=== PATIENT | male | born 1995 | race Caucasian/White ===

== ENCOUNTER → 2017-09-15 | Outpatient (CLI) | payer OTHER ==
--- NOTE | 2017-09-16 08:37 | MR ---
EXAMINATION TYPE: MR brain wo/w con DATE OF EXAM: 09/15/2017 COMPARISON: Prior brain MRI 07/10/2010 HISTORY: Poor Memory. Gadavist 7.5 TECHNIQUE: Multiplanar, multisequence images of the brain and brainstem is performed without and with IV contras t, utilizing 7.5 mL intravenous Gadavist . FINDINGS: Diffusion weighted images demonstrate no evidence of a recent infarct or other diffusion ab normality. There is no extra-axial fluid collection or significant interval change in white matter s ignal abnormality, brain signal is remarkable for punctate hyperintensities in the subcortical fronta l lobes, single lesions bilaterally measuring only 1 mm in size of questionable clinical significance . The ventricular system and cisternal spaces are normal in size and appearance. The brain volume i s age appropriate. Midline structures demonstrate normal morphology. The craniocervical junction appears within normal limits. Post contrast images demonstrate no abnormal enhancement. The dural venous sinuses appear pa tent. The visualized sinuses are remarkable for extensive bilateral maxillary sinus disease, ethmoid sinus disease and the globes are intact. IMPRESSION: Sinus disease, stable brain MRI
== END | disposition home or self-care (01) ==
LOC: RADMRIMAIN 18:34
PROVIDERS: ATTEND Family Medicine
DX: J32.2 Chronic ethmoidal sinusitis (principal); J32.0 Chronic maxillary sinusitis; R41.3 Other amnesia; F95.2 Tourette's disorder
CPT/HCPCS: 70553; A9581

== ENCOUNTER 2018-01-10 12:54 | Emergency (ER) | payer OTHER ==
--- NOTE | 2018-01-10 13:34 | ED ---
General Adult HPI - General Chief complaint: Abdominal Pain Stated complaint: Flank Pain Time Seen by Provider: 01/10/18 13:10 Source: patient, family, RN notes reviewed, old records reviewed Mode of arrival: ambulatory Limitations: no limitations - History of Present Illness Initial comments: Complaint history of present illness a 22-year-old male here with his significant other. The patient reports she's had on-again off-again pain to the right upper quadrant for more than a year. More recently has been increasing. He states that it seems to get worse after eating greasy fatty foods. No change in bowel or urine habits. Denies nausea vomiting denies having any pain at this time. - Related Data Home Medications Medication Instructions Recorded Confirmed Albuterol Inhaler [Ventolin Hfa 2 puff INHALATION RT-Q6H PRN 03/25/16 01/10/18 Inhaler] Previous Rx's Medication Instructions Recorded Ondansetron Odt [Zofran ODT] 4 mg PO Q8HR PRN #5 tab 01/10/18 Ranitidine HCl [Zantac] 150 mg PO BID #30 tab 01/10/18 Allergies Allergy/AdvReac Type Severity Reaction Status Date / Time bee venom protein (honey bee) Allergy Swelling Verified 01/10/18 16:58 Review of Systems ROS Statement: Those systems with pertinent positive or pertinent negative responses have been documented in the HPI. Review of systems. No complaint of any headache or visual acuity changes no sore throat no chest pain or shortness of breath he has discomfort to the right upper quadrant occasionally goes to the epigastric region. Pain last several hours. Often times after eating a big meal. Denies any change in bowel or urinary habits. No nausea no vomiting. No direct injury. All systems were reviewed past medical problems asthma. Surgeries none. Family history an aunt had gallbladder issues. The patient has ALLERGIES to bees. Denies smoking denies drinking other than occasional socially. 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 Occasionally it hurts at work while moving around ROS Other: All systems not noted in ROS Statement are negative. Past Medical History Past Medical History: Asthma History of Any Multi-Drug Resistant Organisms: None Reported Past Surgical History: No Surgical Hx Reported Past Psychological History: No Psychological Hx Reported Smoking Status: Former smoker Past Alcohol Use History: Rare Past Drug Use History: Marijuana General Exam - General Exam Comments Initial Comments: General: The patient is awake and alert, in no distress, and does not appear acutely ill. Here because of recurrent and increasing discomfort to the right upper quadrant. Vital signs his temperature 98.2 pulse 73 respiratory rate 18 pulse ox 99% room air blood pressure 126/71 Eye: Pupils are equal, round and reactive to light, extra-ocular movements are intact ; there is normal conjunctiva bilaterally. No signs of icterus. Ears, nose, mouth and throat: There are moist mucous membranes and no oral lesions. Neck: The neck is supple, there is no tenderness no anterior cervical lymphadenopathy. Cardiovascular: There is a regular rate and rhythm. No murmur, rub or gallop is appreciated. Respiratory: Lungs are clear to auscultation, respirations are non-labored, breath sounds are equal. No wheezes, stridor, rales, or rhonchi. Gastrointestinal: Soft, non-distended, non-tender abdomen without masses or organomegaly noted. There is no rebound or guarding present. No CVA tenderness. Bowel sounds are unremarkable. Negative Arrington sign at this time. By does complain of discomfort to the right upper quadrant after heavy meals. Back: No flank pain. Musculoskeletal: Normal ROM, no tenderness, T Neurological: No complaints of or any neuro deficits noted. No problem with dizziness. Skin: Skin is warm and dry and no rashes or lesions are noted. Psychiatric: Cooperative, appropriate mood & affect, Limitations: no limitations Course Vital Signs 01/10/18 01/10/18 01/10/18 13:00 15:29 17:16 Temperature 98.2 F 97.3 F L 97.2 F L Pulse Rate 73 57 L 52 L Respiratory 18 16 14 Rate Blood Pressure 126/71 111/61 132/67 O2 Sat by Pulse 99 98 100 Oximetry Medical Decision Making - Medical Decision Making Medical decision making; the 22-year-old male here with a complaint of right upper quadrant discomfort on again off again for better part of 1 year and increasing more recently. He does note upon questioning that does seem to get worse after eating greasy fatty meal. Also of interest the patient has lost a fair amount of weight over the last 2 years. As much as 60 pounds. Nausea no vomiting no change in color of stool or urine. Labs show white count 9.6 hemoglobin 16 hematocrit of 47 with a potassium 3.9. BUN 16 creatinine 0.8 GFR greater than 90. Glucose 72. Patient's urine positive for ketones. The patient is being hydrated. No signs of blood. X-ray of the abdomen was done 2 views. And reviewed by radiologist his impression is unremarkable abdomen. As read by Dr. Rojo The patient has not had anything to eat today we will do an ultrasound without gallbladder problems. Ultrasound of the abdomen specifically the right upper quadrant was done and reviewed by radiologist his impression is pancreas visualized portions with a normal limits. Liver within normal limits. Gallbladder no stone seen. Evidence for sonographic Arrington sign no., Bile duct within normal limits. The right kidney no hydronephrosis or masses seen, limited visualization due to bowel gas pattern impression visualized portions right upper quadrant are unremarkable. We discussed discomfort from the epigastric region such as gastritis or early ulcer disease or biliary colic. The patient has lost a large amount of weight over the past year or 2 a does complain of the symptoms are suggestive of biliary colic. The patient will be advised to follow-up with the on-call physician for further evaluation including a possible HIDA scan. In the meanwhile patient be placed on Zantac, Zofran for nausea, advised to stay with greasy fatty foods. Or return emergency room as needed. - Lab Data Result diagrams: 01/10/18 15:06 01/10/18 15:06 Lab Results 01/10/18 01/10/18 01/10/18 Range/Units 15:06 15:06 15:06 WBC 9.6 (4.0-11.0) k/uL RBC 5.19 (4.30-5.90) m/uL Hgb 16.0 (13.0-17.5) gm/dL Hct 47.1 (39.0-53.0) % MCV 90.7 (80.0-100.0) fL MCH 30.8 (25.0-35.0) pg MCHC 33.9 (31.0-37.0) g/dL RDW 13.2 (11.5-15.5) % Plt Count 228 (150-450) k/uL Neutrophils % 69 % Lymphocytes % 22 % Monocytes % 7 % Eosinophils % 1 % Basophils % 0 % Neutrophils # 6.6 (1.3-7.7) k/uL Lymphocytes # 2.1 (1.0-4.8) k/uL Monocytes # 0.6 (0-1.0) k/uL Eosinophils # 0.1 (0-0.7) k/uL Basophils # 0.0 (0-0.2) k/uL Sodium 143 (137-145) mmol/L Potassium 3.9 (3.5-5.1) mmol/L Chloride 104 (98-107) mmol/L Carbon Dioxide 24 (22-30) mmol/L Anion Gap 15 mmol/L BUN 16 (9-20) mg/dL Creatinine 0.80 (0.66-1.25) mg/dL Est GFR (CKD-EPI)AfAm >90 (>60 ml/min/1.73 sqM) Est GFR (CKD-EPI)NonAf >90 (>60 ml/min/1.73 sqM) Glucose 72 L (74-99) mg/dL Calcium 9.7 (8.4-10.2) mg/dL Total Bilirubin 0.9 (0.2-1.3) mg/dL AST 23 (17-59) U/L ALT 30 (21-72) U/L Alkaline Phosphatase 63 (38-126) U/L Total Protein 7.0 (6.3-8.2) g/dL Albumin 4.4 (3.5-5.0) g/dL Amylase 59 (30-110) U/L Lipase 48 (23-300) U/L Urine Color Yellow Urine Appearance Clear (Clear) Urine pH 7.0 (5.0-8.0) Ur Specific [place] 1.020 (1.001-1.035) Urine Protein Negative (Negative) Urine Glucose (UA) Negative (Negative) Urine Ketones Trace H (Negative) Urine Blood Negative (Negative) Urine Nitrite Negative (Negative) Urine Bilirubin Negative (Negative) Urine Urobilinogen <2.0 (<2.0) mg/dL Ur Leukocyte Esterase Negative (Negative) Disposition Clinical Impression: Biliary colic symptom Disposition: HOME SELF-CARE Condition: Fair Additional Instructions: Take Zofran for nausea, Zantac for upset stomach. Use Mylanta as needed. Stay away from greasy fatty foods. Follow-up with on-call physician Dr. Hopkins . He may need a HIDA scan for further evaluation. Tylenol for pain Prescriptions: Ondansetron Odt [Zofran ODT] 4 mg PO Q8HR PRN #5 tab PRN Reason: Nausea Ranitidine HCl [Zantac] 150 mg PO BID #30 tab Is patient prescribed a controlled substance at d/c from ED?: No Referrals: None,Stated [Primary Care Provider] - 1-2 days Steph Hopkins MD [REFERRING] - 1-2 days Time of Disposition: 17:31
--- NOTE | 2018-01-10 14:26 | XR ---
EXAMINATION TYPE: XR abdomen 2V DATE OF EXAM: 01/10/2018 COMPARISON: 03/25/2016 INDICATION: Abdomen pain TECHNIQUE: Single view abdomen upright view. Exam is supplemented with a supine view FINDINGS: There is a normal bowel gas pattern. Psoas margins are normal. No organomegaly is present. No abnormal calcifications are evident. IMPRESSION: 1. Unremarkable Abdomen
[2018-01-10 15:26] LABS: Appearance,Urine Clear (Clear); Bilirubin,Urine Negative (Negative); Blood,Urine Negative (Negative); Color,Urine Yellow; Glucose,Urine (UA) Negative (Negative); Ketones,Urine Trace (Negative); Leukocyte Esterase,Urine Negative (Negative); Nitrite,Urine Negative (Negative); Protein,Urine Negative (Negative); Urobilinogen,Urine <2.0 mg/dL (<2.0)
[2018-01-10 15:30] LABS: Basophils % (A) 0 %; Eosinophils # (A) 0.1 k/uL (0-0.7); Eosinophils % (A) 1 %; HCT 47.1 % (39.0-53.0); Lymphocytes # (A) 2.1 k/uL (1.0-4.8); Lymphocytes % (A) 22 %; MCH 30.8 pg (25.0-35.0); MCHC 33.9 g/dL (31.0-37.0); MCV 90.7 fL (80.0-100.0); Mean Platelet Volume 6.5; Monocytes # (A) 0.6 k/uL (0-1.0); Monocytes % (A) 7 %; Neutrophils # (A) 6.6 k/uL (1.3-7.7); Neutrophils % (A) 69 %; Platelet Count 228 k/uL (150-450); RBC 5.19 m/uL (4.30-5.90); RDW 13.2 % (11.5-15.5); WBC 9.6 k/uL (4.0-11.0)
[2018-01-10 15:36] LABS: ALT 30 U/L (21-72); AST 23 U/L (17-59); Albumin 4.4 g/dL (3.5-5.0); Alkaline Phosphatase 63 U/L (38-126); Amylase 59 U/L (30-110); Anion Gap 15 mmol/L; Blood Urea Nitrogen 16 mg/dL (9-20); Calcium 9.7 mg/dL (8.4-10.2); Carbon Dioxide 24 mmol/L (22-30); Chloride 104 mmol/L (98-107); Glucose 72 mg/dL (74-99); Lipase 48 U/L (23-300); Potassium 3.9 mmol/L (3.5-5.1); Sodium 143 mmol/L (137-145); Total Bilirubin 0.9 mg/dL (0.2-1.3)
--- NOTE | 2018-01-10 17:09 | US ---
EXAMINATION TYPE: US abdomen limited DATE OF EXAM: 01/10/2018 COMPARISON: NONE CLINICAL HISTORY: Recurrent right upper quadrant pain after eating.. EXAM MEASUREMENTS: Liver Length: 13.7 cm Gallbladder Wall: 0.2 cm CBD: 0.3 cm Right Kidney: 9.3 x 5.1 x 4.6 cm Pancreas: visualized portions wnl Liver: wnl Gallbladder: No stones seen Evidence for sonographic Arrington's sign: No CBD: wnl Right Kidney: No hydronephrosis or masses seen, limited visualization due to bowel gas. IMPRESSION: 1. Visualized portions right upper quadrant are unremarkable.
[2018-01-10 17:22] VITALS: TEMP 97.2
[2018-01-10 18:09] VITALS: BP 136/75; PULSE 61; RESP 18
== END 2018-01-10 17:45 | disposition home or self-care (01) ==
LOC: EC 12:54
DX: R10.11 Right upper quadrant pain (principal); J45.909 Unspecified asthma, uncomplicated; Z87.891 Personal history of nicotine dependence; Z91.030 Bee allergy status
CPT/HCPCS: 36415; 74019; 76705; 80053; 81003; 82150; 83690; 85025; 99285

== ENCOUNTER 2018-07-02 19:05 | Emergency (ER) | payer OTHER ==
[2018-07-02 19:44] VITALS: BP 119/77; PULSE 63; RESP 18; TEMP 99
[2018-07-02] MEDS ORDERED: LIDOCAINE 1% INJ 10MG/ML (20 ML MDV) SQ STA (20:53)
[2018-07-02] MEDS ORDERED: DIPH,PERTUS(ACELL)TETVAC-LF 0.5 ML VIAL IM ONE (20:57)
--- NOTE | 2018-07-02 20:58 | ED ---
General Adult HPI - General Chief complaint: Wound/Laceration Stated complaint: finger lac Time Seen by Provider: 07/02/18 20:41 Source: patient, RN notes reviewed Mode of arrival: ambulatory Limitations: no limitations - History of Present Illness Initial comments: Patient's 22-year-old male presented to the emergency room today with a chief complaint of a laceration to the right index finger. He was met that he was using a cutting wheel grinding when it caught on something skipped his right index finger causing laceration. He did go to [facility] and was sent here in the emergency room for further evaluation. Patient states for able to move the finger. Bleeding is controlled. He states unsure of tetanus status. Patient denies any complaints or symptoms at this time. Patient denies any recent fever , chills, shortness of breath, chest pain, back pain, abdominal pain, nausea or vomiting, numbness or tingling, headaches or visual changes, or any other complaints. - Related Data Home Medications Medication Instructions Recorded Confirmed Albuterol Inhaler [Ventolin Hfa 2 puff INHALATION RT-Q6H PRN 03/25/16 01/10/18 Inhaler] Previous Rx's Medication Instructions Recorded Ondansetron Odt [Zofran ODT] 4 mg PO Q8HR PRN #5 tab 01/10/18 Ranitidine HCl [Zantac] 150 mg PO BID #30 tab 01/10/18 Cephalexin [Keflex] 500 mg PO Q12HR 10 Days cap 07/02/18 Allergies Allergy/AdvReac Type Severity Reaction Status Date / Time bee venom protein (honey bee) Allergy Swelling Verified 01/10/18 16:58 red dye Allergy Swelling Verified 07/02/18 19:45 Review of Systems ROS Statement: Those systems with pertinent positive or pertinent negative responses have been documented in the HPI. ROS Other: All systems not noted in ROS Statement are negative. Past Medical History Past Medical History: Asthma History of Any Multi-Drug Resistant Organisms: None Reported Past Surgical History: No Surgical Hx Reported Past Psychological History: No Psychological Hx Reported Smoking Status: Former smoker Past Alcohol Use History: Rare Past Drug Use History: Marijuana General Exam - General Exam Comments Initial Comments: General: The patient is awake and alert, in no distress, and does not appear acutely ill. Neck: The neck is supple, there is no tenderness or JVD. Musculoskeletal: Full range of motion. Sensations intact. Radial pulses 2+. Strength 5/5 with both flexion and extension at the right index finger. Neurological: A&O x 3. CN II-XII intact, There are no obvious motor or sensory deficits. Coordination appears grossly intact. Speech is normal. Skin: 1 cm linear laceration running vertically over the PIP joint of the right index finger. No active bleeding. Psychiatric: Normal mood and affect. Limitations: no limitations Course Vital Signs 07/02/18 19:42 Temperature 99 F Pulse Rate 63 Respiratory 18 Rate Blood Pressure 119/77 O2 Sat by Pulse 98 Oximetry Procedures - Procedures Initial comment: 1 cm linear laceration to the right index finger. No active bleeding. The skin was anesthetized with 1% lidocaine. The laceration was then cleansed with Betadine and irrigated with normal saline. The wound was inspected, and there was no evidence of injury to deep structures. No foreign body was noted in the wound. A total of 3 skin sutures were placed utilizing 4-0 nylon. Medical Decision Making - Medical Decision Making Tetanus Was updated x-ray reviewed negative for any signs or body. Disposition Clinical Impression: Laceration Disposition: HOME SELF-CARE Condition: Good Instructions: Laceration (ED) Additional Instructions: Please return to the emergency room in 8-10 days to have sutures removed. Please watch for any signs of infection which may include increased pain, swelling, redness, fever or chills. Please return to emergency room for any signs of infection do occur. Please use clean soap and water over the area to prevent scabbing over your stitches. Please leave wound covered for the first 24-48 hours and then leave wound open to air. Please return to the emergency room for any other concerns. Prescriptions: Cephalexin [Keflex] 500 mg PO Q12HR 10 Days cap Is patient prescribed a controlled substance at d/c from ED?: No Referrals: None,Stated [REFERRING] - 1-2 days Time of Disposition: 21:46
--- NOTE | 2018-07-02 21:11 | XR ---
EXAMINATION TYPE: XR finger RT DATE OF EXAM: 07/02/2018 COMPARISON: NONE HISTORY: Laceration TECHNIQUE: 3 views FINDINGS: I see no fracture nor dislocation. Joint spaces are normal. There is no sign of a foreign b [place]. IMPRESSION: Negative exam. No foreign body seen.
== END 2018-07-02 22:13 | disposition home or self-care (01) ==
LOC: EC 19:05
DX: S61.210A Laceration without foreign body of right index finger without damage to nail, initial encounter (principal); J45.909 Unspecified asthma, uncomplicated; Z87.891 Personal history of nicotine dependence; Z91.018 Allergy to other foods; Z91.048 Other nonmedicinal substance allergy status; Z23 Encounter for immunization; W45.8XXA Other foreign body or object entering through skin, initial encounter; Y93.89 Activity, other specified
CPT/HCPCS: 73140; 90715; 99283; 90471; 12001; J2001

== ENCOUNTER 2018-07-31 20:47 | Emergency (ER) | payer OTHER ==
--- NOTE | 2018-07-31 21:44 | XR ---
EXAMINATION TYPE: XR KUB DATE OF EXAM: 07/31/2018 COMPARISON: 01/10/2018 HISTORY: Abdominal pain TECHNIQUE: 2 views FINDINGS: 2 upright views were obtained. Bowel gas pattern is normal. There is no sign of intestinal obstruction or pneumoperitoneum. Fecal pattern is normal. There is no sign of a mass. Lung bases are clear. There are no pathologic calcifications over the kidneys. IMPRESSION: Nonacute abdomen. No change.
[2018-07-31] MEDS ORDERED: ONDANSETRON 4 MG/2 ML VIAL IVP STA (21:57)
[2018-07-31] MEDS ORDERED: KETOROLAC 30 MG/ML 1 ML VIAL IVP STA (21:57)
[2018-07-31] MEDS ORDERED: SODIUM CHLORIDE 0.9% 1,000 ML IV ONE (21:57)
[2018-07-31 22:01] LABS: Basophils % (A) 0 %; Eosinophils # (A) 0.2 k/uL (0-0.7); Eosinophils % (A) 2 %; HCT 46.5 % (39.0-53.0); HGB 15.4 gm/dL (13.0-17.5); Lymphocytes # (A) 3.1 k/uL (1.0-4.8); Lymphocytes % (A) 34 %; MCH 30.1 pg (25.0-35.0); MCHC 33.2 g/dL (31.0-37.0); MCV 90.5 fL (80.0-100.0); Mean Platelet Volume 6.9; Monocytes # (A) 0.7 k/uL (0-1.0); Monocytes % (A) 7 %; Neutrophils % (A) 55 %; Platelet Count 203 k/uL (150-450); RBC 5.14 m/uL (4.30-5.90); RDW 12.7 % (11.5-15.5); WBC 9.1 k/uL (4.0-11.0)
[2018-07-31 22:08] LABS: ALT 31 U/L (21-72); AST 22 U/L (17-59); Albumin 4.3 g/dL (3.5-5.0); Alkaline Phosphatase 60 U/L (38-126); Amylase 60 U/L (30-110); Anion Gap 10 mmol/L; Blood Urea Nitrogen 18 mg/dL (9-20); Calcium 9.3 mg/dL (8.4-10.2); Carbon Dioxide 27 mmol/L (22-30); Chloride 106 mmol/L (98-107); Glucose 85 mg/dL (74-99); Lipase 79 U/L (23-300); Sodium 143 mmol/L (137-145); Total Bilirubin 0.3 mg/dL (0.2-1.3)
[2018-07-31 22:20] LABS: Appearance,Urine Clear (Clear); Bilirubin,Urine Negative (Negative); Blood,Urine Negative (Negative); Color,Urine Yellow; Glucose,Urine (UA) Negative (Negative); Ketones,Urine Negative (Negative); Leukocyte Esterase,Urine Negative (Negative); Nitrite,Urine Negative (Negative); Protein,Urine Negative (Negative); Specific Gravity,Urine 1.017 (1.001-1.035); Urobilinogen,Urine <2.0 mg/dL (<2.0)
--- NOTE | 2018-07-31 22:53 | ED ---
Abdominal Pain HPI - General Chief Complaint: Abdominal Pain Stated Complaint: Abd pain Time Seen by Provider: 07/31/18 21:17 Source: patient, RN notes reviewed, old records reviewed Mode of arrival: ambulatory Limitations: no limitations - History of Present Illness Initial Comments: This is a 22 year old male with CC of Right sided abdominal pain. Patient reports he had a rash ove the right side of his abodmen for one day. Patient reports that he has had intermittent right abdominal pain with eating for months. Patient was evaluated and told that he has had a "bad gallbladder" in ED a few months ago. Has not follow up with surgeon or PCP. Denies fevers, chills, changes in stool or urination. Patient has no vomiting. Patient also reports somewhat pruritic rash over arms. - Related Data Home Medications Medication Instructions Recorded Confirmed Albuterol Inhaler [Ventolin Hfa 2 puff INHALATION RT-Q6H PRN 03/25/16 01/10/18 Inhaler] Previous Rx's Medication Instructions Recorded Ondansetron Odt [Zofran ODT] 4 mg PO Q8HR PRN #5 tab 01/10/18 Ranitidine HCl [Zantac] 150 mg PO BID #30 tab 01/10/18 Cephalexin [Keflex] 500 mg PO Q12HR 10 Days cap 07/02/18 Clotrimazole Cream [Lotrimin Cream] 1 applic TOPICAL BID #60 gm 07/31/18 Allergies Allergy/AdvReac Type Severity Reaction Status Date / Time bee venom protein (honey bee) Allergy Swelling Verified 07/31/18 20:55 red dye Allergy Swelling Verified 07/31/18 20:55 Review of Systems ROS Statement: Those systems with pertinent positive or pertinent negative responses have been documented in the HPI. ROS Other: All systems not noted in ROS Statement are negative. Past Medical History Past Medical History: Asthma History of Any Multi-Drug Resistant Organisms: None Reported Past Surgical History: No Surgical Hx Reported Past Psychological History: No Psychological Hx Reported Smoking Status: Former smoker Past Alcohol Use History: Rare Past Drug Use History: Marijuana General Exam - General Exam Comments Initial Comments: Well appearing 22 year old male, no distress. Limitations: no limitations General appearance: alert, in no apparent distress Head exam: Present: atraumatic, normocephalic, normal inspection Eye exam: Present: normal appearance, PERRL, EOMI. Absent: scleral icterus, conjunctival injection, periorbital swelling ENT exam: Present: normal exam, mucous membranes moist Neck exam: Present: normal inspection. Absent: tenderness, meningismus, lymphadenopathy Respiratory exam: Present: normal lung sounds bilaterally. Absent: respiratory distress, wheezes, rales, rhonchi, stridor Cardiovascular Exam: Present: regular rate, normal rhythm, normal heart sounds. Absent: systolic murmur, diastolic murmur, rubs, gallop, clicks GI/Abdominal exam: Present: soft, normal bowel sounds. Absent: distended, tenderness, guarding, rebound, rigid Extremities exam: Present: normal inspection, full ROM, normal capillary refill , other (evidence of tinea corporis over bilateral shoulders and arms. Small circular scale like patches. ). Absent: tenderness, pedal edema, joint swelling , calf tenderness Back exam: Present: normal inspection Neurological exam: Present: alert, oriented X3, CN II-XII intact Skin exam: Present: warm, dry, intact, normal color. Absent: rash Course Vital Signs 07/31/18 07/31/18 07/31/18 20:49 21:14 21:30 Temperature 98.6 F Pulse Rate 78 80 Respiratory 18 18 Rate Blood Pressure 117/74 115/67 O2 Sat by Pulse 97 99 97 Oximetry 07/31/18 07/31/18 22:00 23:37 Temperature 97.7 F Pulse Rate 75 58 L Respiratory 18 17 Rate Blood Pressure 108/68 106/69 O2 Sat by Pulse 98 98 Oximetry Medical Decision Making - Medical Decision Making 22 year old male with cC of right abdominal pain, and rash over right side. Patient on exam has no significant rash over right abdomen. He has no abdominal tenderness. Labs were obtained and all were within normal limitis. Normal liver enzymes noted. Patient at this time was also examined by Dr. Olivares. Agree to do no further imaging at this time with normal vitals, labs, and non tender exam. Will treat the patient for tinea corporis. Discussed biliary colic and surgery follow up and may need HIDA scan. - Lab Data Result diagrams: 07/31/18 21:25 07/31/18 21:25 Lab Results 07/31/18 07/31/18 07/31/18 Range/Units 21:25 21:25 22:10 WBC 9.1 (4.0-11.0) k/uL RBC 5.14 (4.30-5.90) m/uL Hgb 15.4 (13.0-17.5) gm/dL Hct 46.5 (39.0-53.0) % MCV 90.5 (80.0-100.0) fL MCH 30.1 (25.0-35.0) pg MCHC 33.2 (31.0-37.0) g/dL RDW 12.7 (11.5-15.5) % Plt Count 203 (150-450) k/uL Neutrophils % 55 % Lymphocytes % 34 % Monocytes % 7 % Eosinophils % 2 % Basophils % 0 % Neutrophils # 5.0 (1.3-7.7) k/uL Lymphocytes # 3.1 (1.0-4.8) k/uL Monocytes # 0.7 (0-1.0) k/uL Eosinophils # 0.2 (0-0.7) k/uL Basophils # 0.0 (0-0.2) k/uL Sodium 143 (137-145) mmol/L Potassium 4.0 (3.5-5.1) mmol/L Chloride 106 (98-107) mmol/L Carbon Dioxide 27 (22-30) mmol/L Anion Gap 10 mmol/L BUN 18 (9-20) mg/dL Creatinine 0.86 (0.66-1.25) mg/dL Est GFR (CKD-EPI)AfAm >90 (>60 ml/min/1.73 sqM) Est GFR (CKD-EPI)NonAf >90 (>60 ml/min/1.73 sqM) Glucose 85 (74-99) mg/dL Calcium 9.3 (8.4-10.2) mg/dL Total Bilirubin 0.3 (0.2-1.3) mg/dL AST 22 (17-59) U/L ALT 31 (21-72) U/L Alkaline Phosphatase 60 (38-126) U/L Total Protein 7.0 (6.3-8.2) g/dL Albumin 4.3 (3.5-5.0) g/dL Amylase 60 (30-110) U/L Lipase 79 (23-300) U/L Urine Color Yellow Urine Appearance Clear (Clear) Urine pH 6.0 (5.0-8.0) Ur Specific [place] 1.017 (1.001-1.035) Urine Protein Negative (Negative) Urine Glucose (UA) Negative (Negative) Urine Ketones Negative (Negative) Urine Blood Negative (Negative) Urine Nitrite Negative (Negative) Urine Bilirubin Negative (Negative) Urine Urobilinogen <2.0 (<2.0) mg/dL Ur Leukocyte Esterase Negative (Negative) Disposition Clinical Impression: Tinea corporis, Right upper quadrant abdominal pain Disposition: HOME SELF-CARE Condition: Good Instructions: Abdominal Pain (ED) Additional Instructions: Follow-up with primary care provider and surgeon. Return to emergency department if any alarming signs or symptoms occur. Prescriptions: Clotrimazole Cream [Lotrimin Cream] 1 applic TOPICAL BID #60 gm Is patient prescribed a controlled substance at d/c from ED?: No Referrals: None,Stated [Primary Care Provider] - 1-2 days Melvi Caldera MD [STAFF PHYSICIAN] - 1-2 days Time of Disposition: 23:26
[2018-07-31 23:38] VITALS: BP 106/69; PULSE 58; RESP 17; TEMP 97.7
== END 2018-07-31 23:41 | disposition home or self-care (01) ==
LOC: EC 20:47
DX: B35.4 Tinea corporis (principal); R10.11 Right upper quadrant pain; J45.909 Unspecified asthma, uncomplicated; Z87.891 Personal history of nicotine dependence; Z91.018 Allergy to other foods; Z91.048 Other nonmedicinal substance allergy status
CPT/HCPCS: 36415; 80053; 82150; 83690; 85025; 81003; 74018; 99284; 96374; 96375; 96361 ×2; J2405; J1885

== ENCOUNTER 2020-12-06 04:13 | Emergency (ER) | payer OTHER ==
[2020-12-06 04:19] VITALS: BP 126/75; PULSE 66; RESP 20; TEMP 98.1
[2020-12-06] MEDS ORDERED: TETRACAINE 0.5% OPHTH (PF) DROPS 4 ML BTL LEFT EYE STA (04:21)
[2020-12-06] MEDS ORDERED: FLUORESCEIN STRIPS 1 MG STRIP LEFT EYE ONE (04:22)
[2020-12-06] MEDS ORDERED: ERYTHROMYCIN 5 MG/GM OPHTH OINT 3.5 GM TUBE LEFT EYE STA (05:05)
--- NOTE | 2020-12-06 05:07 | ED ---
Eye Problem HPI - General Chief complaint: ENT Stated complaint: Eye pain Time Seen by Provider: 12/06/20 04:21 Source: patient Mode of arrival: ambulatory Limitations: no limitations - History of Present Illness Initial comments: Patient is 25-year-old man presenting with left eye irritation and redness. The patient states that he had noticed this tonight at home. 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 The patient states that something may have gotten in to his eye when he moved his glasses. He noticed tonight that he was having some irritation and redness. He states that he looked in the mirror and saw a brown spot on his left eye. He denies change in vision. chief complaint: eye redness -: hour(s) Onset Description: gradual Location: left eye Place: home Eye Symptoms: redness, pain, foreign body sensation Severity: moderate If Pain, Quality: burning Consistency: constant Associated Symptoms: none Treatments Prior to Arrival: none - Related Data Patient Tetanus UTD: Yes Home Medications Medication Instructions Recorded Confirmed Albuterol Inhaler (Mhu) [Ventolin 2 puff INHALATION RT-Q6H PRN 03/25/16 01/10/18 Hfa Inhaler] Previous Rx's Medication Instructions Recorded Ondansetron Odt [Zofran ODT] 4 mg PO Q8HR PRN #5 tab 01/10/18 Ranitidine HCl [Zantac] 150 mg PO BID #30 tab 01/10/18 Cephalexin [Keflex] 500 mg PO Q12HR 10 Days cap 07/02/18 Clotrimazole Cream [Lotrimin Cream] 1 applic TOPICAL BID #60 gm 07/31/18 Allergies Allergy/AdvReac Type Severity Reaction Status Date / Time bee venom protein (honey bee) Allergy Swelling Verified 12/06/20 04:19 red dye Allergy Swelling Verified 12/06/20 04:19 Review of Systems ROS Statement: Those systems with pertinent positive or pertinent negative responses have been documented in the HPI. ROS Other: All systems not noted in ROS Statement are negative. Constitutional: Denies: fever, chills Eyes: Reports: eye pain. Denies: vision change Skin: Denies: rash Neurological: Denies: headache Past Medical History Past Medical History: Asthma History of Any Multi-Drug Resistant Organisms: None Reported Past Surgical History: No Surgical Hx Reported Past Psychological History: No Psychological Hx Reported Smoking Status: Never smoker Past Alcohol Use History: Rare Past Drug Use History: Marijuana General Exam Limitations: no limitations General appearance: alert, in no apparent distress Head exam: Present: atraumatic, normocephalic Eye exam: Present: normal appearance, PERRL, EOMI, conjunctival injection. Absent: scleral icterus, nystagmus ENT exam: Present: normal oropharynx Course Vital Signs 12/06/20 04:14 Temperature 98.1 F Pulse Rate 66 Respiratory 20 Rate Blood Pressure 126/75 O2 Sat by Pulse 99 Oximetry Medical Decision Making - Medical Decision Making Patient is 25-year-old man with left eye irritation. I did perform slit lamp examination. There was a small amount of foreign body when I everted the lower lid. This was removed with cotton swab. Exam reveals no rust ring on the left cornea at approximately 9 o'clock position. Remainder of slit lamp exam reveals otherwise normal lids. There is small amount of conjunctival injection. The cornea is thin and clear other than the rust ring. Anterior chamber is clear with no cells or flare. Iris is normal. The upper lid was everted, irrigated, and swabbed. Repeated this for the lower lid. Following the slit lamp exam, and using the slit lamp for guidance, I used the [place] brush to remove the rust ring without complication. Patient tolerated her seizure while Disposition Clinical Impression: Foreign body in cornea, left eye, initial encounter, Corneal rust ring of left eye Disposition: HOME SELF-CARE Condition: Good Instructions (If sedation given, give patient instructions): Eye Foreign Body (ED) Is patient prescribed a controlled substance at d/c from ED?: No Referrals: None,Stated [Primary Care Provider] - 1-2 days Chin Quintero MD [REFERRING] - 1-2 days Wes Quintero MD [STAFF PHYSICIAN] - 1-2 days
== END 2020-12-06 05:22 | disposition home or self-care (01) ==
LOC: EC 04:13
DX: T15.02XA Foreign body in cornea, left eye, initial encounter (principal); J45.909 Unspecified asthma, uncomplicated; Z91.030 Bee allergy status; Z91.048 Other nonmedicinal substance allergy status
CPT/HCPCS: 65222; 99283

== ENCOUNTER 2022-07-19 03:58 | Emergency (ER) | payer BC, OTHER ==
[2022-07-19 04:16] VITALS: RESP 18
--- NOTE | 2022-07-19 04:28 | ED ---
ENT HPI - General Chief complaint: ENT Stated complaint: Left Ear Ache, Facial Numbness Time Seen by Provider: 07/19/22 04:14 Source: patient, RN notes reviewed, old records reviewed Mode of arrival: ambulatory Limitations: no limitations - History of Present Illness Initial comments: This is a 26-year-old male to the emergency department for evaluation. Patient woke up a few hours ago severe left ear pain. It pain that her satiety feels like his jaw is mildly swollen as well into his anterior face. No fevers. Symptoms just been going on for a few hours and woke him from sleep no recent QTC abuse, no recent swimming events MD complaint: ear pain -: hour(s) Location: L ear Severity: severe Severity scale (1-10): 10 Quality: burning, stabbing, aching Consistency: constant Improves with: none Worsens with: none Associated Symptoms: tinnitus, hearing loss, discharge from ear - Related Data Home Medications Medication Instructions Recorded Confirmed Albuterol Inhaler [Ventolin Hfa 2 puff INHALATION RT-Q6H PRN 03/25/16 01/10/18 Inhaler] Previous Rx's Medication Instructions Recorded Ondansetron Odt [Zofran ODT] 4 mg PO Q8HR PRN #5 tab 01/10/18 Ranitidine HCl [Zantac] 150 mg PO BID #30 tab 01/10/18 Cephalexin [Keflex] 500 mg PO Q12HR 10 Days cap 07/02/18 Clotrimazole Cream [Lotrimin Cream] 1 applic TOPICAL BID #60 gm 07/31/18 Amoxic-Pot Clav 875-125Mg 1 tab PO Q12HR #20 tablet 07/19/22 [Augmentin 875-125] Allergies Allergy/AdvReac Type Severity Reaction Status Date / Time bee venom protein (honey bee) Allergy Swelling Verified 07/19/22 04:16 red dye Allergy Swelling Verified 07/19/22 04:16 Review of Systems ROS Statement: Those systems with pertinent positive or pertinent negative responses have been documented in the HPI. ROS Other: All systems not noted in ROS Statement are negative. Past Medical History Past Medical History: Asthma History of Any Multi-Drug Resistant Organisms: None Reported Past Surgical History: No Surgical Hx Reported Past Psychological History: No Psychological Hx Reported Smoking Status: Current every day smoker Past Alcohol Use History: Rare Past Drug Use History: Marijuana General Exam Limitations: no limitations General appearance: alert, in no apparent distress Head exam: Present: atraumatic, normocephalic, normal inspection Eye exam: Present: normal appearance, PERRL, EOMI. Absent: scleral icterus, conjunctival injection, periorbital swelling ENT exam: Present: normal exam. Absent: TM's normal bilaterally (Left TM is erythematous and swollen) Neck exam: Present: normal inspection. Absent: tenderness, meningismus, lymphadenopathy Respiratory exam: Present: normal lung sounds bilaterally. Absent: respiratory distress, wheezes, rales, rhonchi, stridor Cardiovascular Exam: Present: regular rate, normal rhythm, normal heart sounds. Absent: systolic murmur, diastolic murmur, rubs, gallop, clicks GI/Abdominal exam: Present: soft, normal bowel sounds. Absent: distended, tenderness, guarding, rebound, rigid Extremities exam: Present: normal inspection, full ROM, normal capillary refill. Absent: tenderness, pedal edema, joint swelling, calf tenderness Back exam: Present: normal inspection Neurological exam: Present: alert, oriented X3, CN II-XII intact Psychiatric exam: Present: normal affect, normal mood Skin exam: Present: warm, dry, intact, normal color. Absent: rash Course Vital Signs 07/19/22 04:14 Temperature 98 F Pulse Rate 88 Respiratory 18 Rate Blood Pressure 132/87 O2 Sat by Pulse 98 Oximetry - Reevaluation(s) Reevaluation #1: 07/19/22 05:39 Attic record is reviewed Reevaluation #2: 07/19/22 05:39 Patient's pain is improved Reevaluation #3: 07/19/22 05:39 patient informed results and questions are answered Medical Decision Making - Medical Decision Making 26 male urgency department for evaluation severe left ear pain. Otitis externa drops and antibiotics and patient can be discharged home Disposition Clinical Impression: Left otitis media, Left otitis externa Disposition: HOME SELF-CARE Condition: Good Instructions (If sedation given, give patient instructions): Ear Infection (ED), Earache (ED) Prescriptions: Amoxic-Pot Clav 875-125Mg [Augmentin 875-125] 1 tab PO Q12HR #20 tablet Is patient prescribed a controlled substance at d/c from ED?: No Referrals: Amaya Puente DO [Primary Care Provider] - 1-2 days Time of Disposition: 05:20
[2022-07-19] MEDS ORDERED: AMOXIC-POT CLAV 875-125MG 1 EACH TAB PO STA (05:11)
[2022-07-19] MEDS ORDERED: CIPROFLOXACIN-DEXAMETH 0.3-0.1% DROPS 7.5 ML BTL LEFT EAR STA (05:11)
[2022-07-19] MEDS ORDERED: ACETAMINOPHEN TAB 500 MG TAB PO STA (05:12)
[2022-07-19] MEDS ORDERED: IBUPROFEN 800 MG TAB PO STA (05:12)
[2022-07-19 05:46] VITALS: BP 131/75; PULSE 85; TEMP 98.2
== END 2022-07-19 05:46 | disposition home or self-care (01) ==
LOC: EC 03:58
DX: H66.92 Otitis media, unspecified, left ear (principal); H60.92 Unspecified otitis externa, left ear; J45.909 Unspecified asthma, uncomplicated; F17.210 Nicotine dependence, cigarettes, uncomplicated; Z91.030 Bee allergy status; Z91.041 Radiographic dye allergy status
CPT/HCPCS: 99283

== ENCOUNTER → 2022-11-12 | Outpatient (CLI) | payer BC, OTHER ==
--- NOTE | 2022-11-12 16:05 | P.SLEEP ---
History of Present Illness DATE: 11/12/2022 CONSULTATION/NEW PATIENT EVALUATION HISTORY OF PRESENT ILLNESS/SLEEP-WAKE EVALUATION: 27 old gentleman had been ev aluated in the sleep center for significant excessive daytime sleepiness. Patient has history of sleepiness for many years. His conditions improved while he is using Adderall 20 mg a day. SLEEP SCHEDULE: Usually sleep schedule from 9 PM to 5 AM on weekdays and from midnight until 8 AM on weekend. FALLING ASLEEP: No problems with falling asleep. DURING SLEEP: Positive history of mild snoring. No sleep paralysis, or cataplexy. DURING THE DAY/WAKE STATE: []. History of hypnogogical hallucinations while dozing off. [place] sleepiness scale is 16, which is in very high range and indicates sleepiness.[]. PAST MEDICAL HISTORY: History of ADHD . PAST SURGICAL HISTORY: None. MEDICATIONS: None. SOCIAL HISTORY: Smokes for 2 years about one quarter of pack a day, alcohol consumption occasional. FAMILY HISTORY: Hypertension, hyperlipidemia. REVIEW OF SYSTEMS: Snoring, excessive daytime sleepiness. No fevers. No double vision. No recent chest pain. No shortness of breath. No abdominal pain. No bleeding episodes. No blood in urine. No seizure episodes. PHYSICAL EXAMINATION: GENERAL: A pleasant patient without any distress. VITAL SIGNS: BP 111/66, HR 72, RR 16, weight 205.4 pounds, height 6 foot 0.5 inches, body mass index 27.4. HEENT: PERRLA, EOMI. Evaluation of oropharynx showed tongue protrudes midline, low position of soft palate Mallampati 4. NECK: Supple. No JVD. Thyroid is not palpable. 15.5 inches in circumference. LUNGS: Clear to percussion and to auscultation. Good air exchange. No wheezing or rhonchi. HEART: S1, S2 regular. No murmurs, gallops or rubs. ABDOMEN: Soft and nontender. Bowel sounds are present. No organomegaly appreciated. EXTREMITIES: No clubbing or cyanosis. SECRETARY ADMINISTRATIVE ASSISTANT: Awake, alert, and oriented x3. Cranial nerves 2 to 7 intact. There is no fasciculation or atrophy noted. No focal deficits observed. ASSESSMENT: 1. Significant excessive daytime sleepiness, effort sleepiness scale 16. Positive history of hypnogogical hallucinations during dozing off during the day. Possible narcolepsy. 2. Mild snoring, extremely low position of soft palate, sleepiness. Possible obstructive sleep apnea hypopnea syndrome. 3. Positive history of sleep talking. 4. Significant amount of movements during the sleep, possibly periodic limb movements. PLAN: 1. Polysomnography for evaluation of patient's breathing during sleep and to check for periodic limb movements. Multiple sleep latency test if sleep study negative for obstructive sleep apnea hypopnea syndrome. 2. Following plan after eating sleep study. 3. Preferable position during sleep on the side. 4. No driving if patient feels any sleepiness. Patient is aware of civil and criminal liability for unsafe driving. 5. Sleep hygiene with regular sleep time for at least 7.5-8 hours. 6. Watching weight. Thank you very much for referring this patient for consultation. Sincerely, Yoandy Asif MD, PhD, FAASM. Diplomat of [place] [employer], Sleep Medicine Board by [place] [employer] [place] [employer] [facility] [place] Past Medical History Past Medical History: Asthma History of Any Multi-Drug Resistant Organisms: None Reported Past Surgical History: No Surgical Hx Reported Past Psychological History: No Psychological Hx Reported Smoking Status: Current every day smoker Past Alcohol Use History: Rare Past Drug Use History: Marijuana Medications and Allergies Home Medications Medication Instructions Recorded Confirmed Type Albuterol Inhaler [Ventolin Hfa 2 puff INHALATION RT-Q6H PRN 03/25/16 01/10/18 History Inhaler] Ondansetron Odt [Zofran ODT] 4 mg PO Q8HR PRN #5 tab 01/10/18 Rx Ranitidine HCl [Zantac] 150 mg PO BID #30 tab 01/10/18 Rx Cephalexin [Keflex] 500 mg PO Q12HR 10 Days cap 07/02/18 Rx Clotrimazole Cream [Lotrimin Cream] 1 applic TOPICAL BID #60 gm 07/31/18 Rx Amoxic-Pot Clav 875-125Mg 1 tab PO Q12HR #20 tablet 07/19/22 Rx [Augmentin 875-125] Allergies Allergy/AdvReac Type Severity Reaction Status Date / Time bee venom protein (honey bee) Allergy Swelling Verified 07/19/22 04:16 red dye Allergy Swelling Verified 07/19/22 04:16 Sleep Note - Sleep Note Sleep Note: Temperature: Pulse Rate: Respiratory Rate: Blood Pressure: SpO2: Height: Weight: BMI: Neck Circumference:
== END ==
LOC: SLEEP 14:49
PROVIDERS: ATTEND Internal Medicine
DX: G47.33 Obstructive sleep apnea (adult) (pediatric) (principal); J45.909 Unspecified asthma, uncomplicated; E78.5 Hyperlipidemia, unspecified; Z87.891 Personal history of nicotine dependence; Z91.02 Food additives allergy status
CPT/HCPCS: 99211

== ENCOUNTER 2022-12-15 15:23 | Emergency (ER) | payer BC, OTHER ==
[2022-12-15 16:22] LABS: Appearance,Urine Clear (Clear); Bilirubin,Urine Negative (Negative); Blood,Urine Negative (Negative); Color,Urine Yellow; Glucose,Urine (UA) Negative (Negative); Ketones,Urine Negative (Negative); Leukocyte Esterase,Urine Negative (Negative); Nitrite,Urine Negative (Negative); Protein,Urine Trace (Negative); Specific Gravity,Urine 1.026 (1.001-1.035); Urobilinogen,Urine <2.0 mg/dL (<2.0)
[2022-12-15 16:23] LABS: Basophils % (A) 0 %; Eosinophils # (A) 0.1 k/uL (0-0.7); Eosinophils % (A) 1 %; HCT 52.4 % (39.0-53.0); HGB 17.4 gm/dL (13.0-17.5); Lymphocytes # (A) 1.9 k/uL (1.0-4.8); Lymphocytes % (A) 21 %; MCHC 33.2 g/dL (31.0-37.0); MCV 90.4 fL (80.0-100.0); Mean Platelet Volume 7.1; Monocytes # (A) 0.6 k/uL (0-1.0); Monocytes % (A) 6 %; Neutrophils # (A) 6.6 k/uL (1.3-7.7); Neutrophils % (A) 71 %; Platelet Count 251 k/uL (150-450); RBC 5.79 m/uL (4.30-5.90); RDW 12.5 % (11.5-15.5); WBC 9.3 k/uL (3.8-10.6)
[2022-12-15 16:50] LABS: ALT 23 U/L (4-49); AST 24 U/L (17-59); African American GFR (CKD) >90 (>60 ml/min/1.73 sqM); Albumin 4.8 g/dL (3.5-5.0); Alkaline Phosphatase 70 U/L (38-126); Anion Gap 12 mmol/L; Blood Urea Nitrogen 13 mg/dL (9-20); Calcium 9.7 mg/dL (8.4-10.2); Carbon Dioxide 29 mmol/L (22-30); Chloride 101 mmol/L (98-107); Glucose 77 mg/dL (74-99); Non-African American GFR(CKD) >90 (>60 ml/min/1.73 sqM); Sodium 142 mmol/L (137-145); Total Bilirubin 0.7 mg/dL (0.2-1.3); Total Protein 8.1 g/dL (6.3-8.2)
--- NOTE | 2022-12-15 19:22 | ED ---
General Adult HPI - General Source: patient Mode of arrival: ambulatory <Ramakrishna Nicole - Last Filed: 12/15/22 19:22> - General Source: patient, RN notes reviewed Mode of arrival: ambulatory Limitations: no limitations - History of Present Illness Complaint: Abdominal pain <Norma Naylor - Last Filed: 12/15/22 23:30> - General Chief complaint: Abdominal Pain Stated complaint: SIDE/ABD PAIN Time Seen by Provider: 12/15/22 19:22 - History of Present Illness Initial comments: Patient is a 27-year-old male presenting with chief complaint of right-sided flank pain that wraps around to the abdomen. Has been ongoing for the last 2 weeks. No dysuria or hematuria. No fevers or chills. No nausea or vomiting. No history of abdominal surgeries. (Ramakrishna Nicole) When I went to evaluate the patient, he states that he feels like this right sided abdominal pain has been ongoing since he was 15 years old. When he was younger, it would only last for a couple of days at a time and then go away for months. Over the last 2 weeks, the pain has been constant and worse that it has ever been. Pain is better when pressing on the abdomen and worse when sitting still. States that this is a nagging and cramping kind of pain. He has some nausea due to the pain but no vomiting. Denies any changes in bowel or bladder habits. He has never had this evaluated in the past. (Norma Naylor) - Related Data Home Medications Medication Instructions Recorded Confirmed Albuterol Inhaler [Ventolin Hfa 2 puff INHALATION RT-Q6H PRN 03/25/16 01/10/18 Inhaler] Previous Rx's Medication Instructions Recorded Ondansetron Odt [Zofran ODT] 4 mg PO Q8HR PRN #5 tab 01/10/18 Ranitidine HCl [Zantac] 150 mg PO BID #30 tab 01/10/18 Cephalexin [Keflex] 500 mg PO Q12HR 10 Days cap 07/02/18 Clotrimazole Cream [Lotrimin Cream] 1 applic TOPICAL BID #60 gm 07/31/18 Amoxic-Pot Clav 875-125Mg 1 tab PO Q12HR #20 tablet 07/19/22 [Augmentin 875-125] Allergies Allergy/AdvReac Type Severity Reaction Status Date / Time bee venom protein (honey bee) Allergy Swelling Verified 12/15/22 15:58 red dye Allergy Swelling Verified 12/15/22 15:58 Review of Systems ROS Other: All systems not noted in ROS Statement are negative. <Ramakrishna Nicole - Last Filed: 12/15/22 19:22> ROS Other: All systems not noted in ROS Statement are negative. <Norma Naylor - Last Filed: 12/15/22 23:30> ROS Statement: Those systems with pertinent positive or pertinent negative responses have been documented in the HPI. Past Medical History Past Medical History: Asthma History of Any Multi-Drug Resistant Organisms: None Reported Past Surgical History: No Surgical Hx Reported Past Psychological History: No Psychological Hx Reported Smoking Status: Current every day smoker Past Alcohol Use History: Rare Past Drug Use History: Marijuana <Ramakrishna Nicole - Last Filed: 12/15/22 19:22> General Exam <Ramakrishna Nicole - Last Filed: 12/15/22 19:22> Limitations: no limitations General appearance: alert, in no apparent distress Head exam: Present: atraumatic, normocephalic, normal inspection Respiratory exam: Present: normal lung sounds bilaterally. Absent: respiratory distress, wheezes, rales, rhonchi, stridor Cardiovascular Exam: Present: regular rate, normal rhythm, normal heart sounds. Absent: systolic murmur, diastolic murmur, rubs, gallop, clicks GI/Abdominal exam: Present: soft, normal bowel sounds. Absent: distended, t enderness, guarding, rebound, rigid Neurological exam: Present: alert, oriented X3, CN II-XII intact Psychiatric exam: Present: normal affect, normal mood Skin exam: Present: warm, dry, intact, normal color. Absent: rash <Norma Naylor - Last Filed: 12/15/22 23:30> - General Exam Comments Initial Comments: Visual Physical Exam Vital signs reviewed General: Well-appearing, nontoxic, no acute distress. Head: Normocephalic, atraumatic Eyes: PERRLA, EOMI ENT: Airway patent Chest: Nonlabored breathing Skin: No visual rash, normal skin tone Neuro: Alert and oriented 3 Musculoskeletal: No gross abnormalities (Ramakrishna Nicole) Course Vital Signs 12/15/22 12/15/22 15:52 21:32 Temperature 98.4 F 98.2 F Pulse Rate 67 61 Respiratory 18 16 Rate Blood Pressure 120/81 120/67 O2 Sat by Pulse 97 98 Oximetry Medical Decision Making - Lab Data Result diagrams: 12/15/22 16:16 12/15/22 16:16 <Ramakrishna Nicole - Last Filed: 12/15/22 19:22> - Lab Data Result diagrams: 12/15/22 16:16 12/15/22 16:16 - Radiology Data Radiology results: report reviewed, image reviewed <Norma Naylor - Last Filed: 12/15/22 23:30> - Medical Decision Making This is a 27-year-old male who presents to the emergency department for right- sided abdominal pain. Was pt. sent in by a medical professional or institution? @ -No Did you speak to anyone other than the patient for history? @ -No Did you review nursing and triage notes? @ -Yes, and I agree, it is accurate with regards to the patient's symptoms. Were old charts reviewed? @ -No Differential Diagnosis? @ -Differential Abdominal Pain Men: Appendicitis, cholecystitis, diverticulosis, ischemic bowel, pancreatitis, hepatitis, UTI, gastroenteritis, AAA, incarcerated hernia, bowel obstruction, constipation, inflammatory bowel, hepatitis, peptic ulcer disease, splenic infarction, perforated viscus, testicular torsion, this is not meant to be an all-inclusive list X-rays interpreted by me (1pt min.)? @ -My interpretation of the KUB x-ray reveals no free air or dilation of the bowel loops. CT interpreted by me (1pt min.)? @ -Computed tomography scan of the abdomen and pelvis obtained. My interpretation identifies no evidence of bowel wall thickening or ureteral calculus. What testing was considered but not performed? (CT, X-rays, U/S, labs)? Why? @ -None What meds were considered but not given? Why? @ -None Did you discuss the management of the patient with other professionals? @ -No Did you reconcile home meds? @ -No Was smoking cessation discussed for >3mins.? @ -No Was critical care preformed (if so, how long)? @ -No Were there social determinants of health that impacted care today? How? (Homelessness, low income, unemployed, alcoholism, drug addiction, trans portation, low edu. Level, literacy, decrease access to med. care, residential, rehab)? @ -No Was there de-escalation of care discussed even if they declined? (Discuss DNR or withdrawal of care, Hospice)? @ -No What co-morbidities impacted this encounter? (DM, HTN, Smoking, COPD, CAD, Cancer, CVA, Hep., AIDS, mental health diagnosis, sleep apnea, morbid obesity)? @ -None Was patient admitted / discharged? @ -Discharged. Lab work obtained and found to be nonactionable. Urinalysis negative for signs of infection. KUB x-ray revealed no acute findings. Computed tomography scan of the abdomen and pelvis was subsequently obtained for further evaluation. This again revealed no acute process. Advised we do not have a clear cause as to what is causing this problem. It is also a peculiar as to why the pain gets better when the area is pressed and worse when left alone. He was given Toradol which did offer some improvement. Advised to alternate with ibuprofen and Tylenol as needed for pain relief and follow up with his primary care provider for further evaluation of ongoing symptoms. I did give him a starter pack for Flexeril, which I advised can be sedating and he is instructed to avoid driving or operating machinery when taking this. Undiagnosed new problem with uncertain prognosis? @ -None Drug Therapy requiring intensive monitoring for toxicity (Heparin, Nitro, Insulin, Cardizem)? @ -None Were any procedures done? @ -None Diagnosis/symptom? @ -Right sided abdominal pain Acute, or Chronic, or Acute on Chronic? @ -Acute Uncomplicated (without systemic symptoms) or Complicated (systemic symptoms)? @ -Uncomplicated Side effects of treatment? @ -None Exacerbation, Progression, or Severe Exacerbation] @ -Not applicable Poses a threat to life or bodily function? @ -No Return precautions reviewed in depth, the patient is instructed to return to the emergency department with any new, worsening, or concerning symptoms. Patient verbalized understanding. This case was discussed in detail with the attending ED physician, Dr. Minor. Presentation, findings, and treatment plan discussed in detail as well. (Norma Naylor) - Lab Data Lab Results 12/15/22 12/15/22 12/15/22 Range/Units 16:16 16:16 16:16 WBC 9.3 (3.8-10.6) k/uL RBC 5.79 (4.30-5.90) m/uL Hgb 17.4 (13.0-17.5) gm/dL Hct 52.4 (39.0-53.0) % MCV 90.4 (80.0-100.0) fL MCH 30.0 (25.0-35.0) pg MCHC 33.2 (31.0-37.0) g/dL RDW 12.5 (11.5-15.5) % Plt Count 251 (150-450) k/uL MPV 7.1 Neutrophils % 71 % Lymphocytes % 21 % Monocytes % 6 % Eosinophils % 1 % Basophils % 0 % Neutrophils # 6.6 (1.3-7.7) k/uL Lymphocytes # 1.9 (1.0-4.8) k/uL Monocytes # 0.6 (0-1.0) k/uL Eosinophils # 0.1 (0-0.7) k/uL Basophils # 0.0 (0-0.2) k/uL Sodium 142 (137-145) mmol/L Potassium 4.0 (3.5-5.1) mmol/L Chloride 101 (98-107) mmol/L Carbon Dioxide 29 (22-30) mmol/L Anion Gap 12 mmol/L BUN 13 (9-20) mg/dL Creatinine 0.82 (0.66-1.25) mg/dL Est GFR (CKD-EPI)AfAm >90 (>60 ml/min/1.73 sqM) Est GFR (CKD-EPI)NonAf >90 (>60 ml/min/1.73 sqM) Glucose 77 (74-99) mg/dL Calcium 9.7 (8.4-10.2) mg/dL Total Bilirubin 0.7 (0.2-1.3) mg/dL AST 24 (17-59) U/L ALT 23 (4-49) U/L Alkaline Phosphatase 70 (38-126) U/L Total Protein 8.1 (6.3-8.2) g/dL Albumin 4.8 (3.5-5.0) g/dL Urine Color Yellow Urine Appearance Clear (Clear) Urine pH 6.0 (5.0-8.0) Ur Specific [place] 1.026 (1.001-1.035) Urine Protein Trace H (Negative) Urine Glucose (UA) Negative (Negative) Urine Ketones Negative (Negative) Urine Blood Negative (Negative) Urine Nitrite Negative (Negative) Urine Bilirubin Negative (Negative) Urine Urobilinogen <2.0 (<2.0) mg/dL Ur Leukocyte Esterase Negative (Negative) Disposition <Ramakrishna Nicole - Last Filed: 12/15/22 19:22> Is patient prescribed a controlled substance at d/c from ED?: No <Norma Naylor - Last Filed: 12/15/22 23:30> Clinical Impression: Right sided abdominal pain Disposition: HOME SELF-CARE Instructions (If sedation given, give patient instructions): Abdominal Pain (ED) Additional Instructions: Return to the emergency department with any new, worsening, or concerning symptoms. Alternate with ibuprofen and Tylenol as needed for pain relief. Contact gastroenterology as listed below for reevaluation of ongoing symptoms. Follow up with your primary care provider in 1-2 days. Referrals: Amaya Puente DO [Primary Care Provider] - 1-2 days
--- NOTE | 2022-12-15 19:49 | XR ---
EXAMINATION TYPE: XR KUB DATE OF EXAM: 12/15/2022 7:44 PM INDICATION: Patient age:Male; 27 years old; Reason for study: R flank pain; COMPARISON: None. TECHNIQUE: One radiographic view of the abdomen was obtained. FINDINGS: The bowel gas pattern is nonspecific without dilated loops of small or large bowel. There i s no evidence for organomegaly or pneumoperitoneum. The osseous structures are intact. No abnormal calcifications are present. Fecal material and gas are demonstrated throughout the colon and rectum. IMPRESSION: Nonspecific bowel gas pattern without radiographic evidence for acute process.
[2022-12-15] MEDS ORDERED: KETOROLAC 15 MG/ML 1 ML VIAL IVP STA (19:52)
--- NOTE | 2022-12-15 21:02 | CT ---
EXAMINATION TYPE: CT abdomen pelvis w con CT DLP: 1118.3 mGycm, Automated exposure control for dose reduction was used. DATE OF EXAM: 12/15/2022 8:28 PM COMPARISON: None CLINICAL INDICATION:Male, 27 years old with history of Right side pain; RLQ pain TECHNIQUE: Axial CT of the abdomen and pelvis. Sagittal and coronal reformats were created on a [employer] workstation. Contrast used:100 mL of Isovue 370 with IV Contrast, Oral contrast used: without Oral Contrast FINDINGS: LOWER CHEST: Unremarkable ABDOMEN LIVER: Unremarkable GALLBLADDER AND BILE DUCTS: Unremarkable. PANCREAS: Unremarkable. SPLEEN: Unremarkable. ADRENAL GLANDS: Unremarkable. KIDNEYS AND URETERS: No evidence of hydronephrosis or renal calculus. The ureters are unremarkable. PELVIS BLADDER: Unremarkable REPRODUCTIVE: Unremarkable. ABDOMEN & PELVIS STOMACH AND BOWEL: No evidence of bowel obstruction. The appendix is visualized and normal. PERITONEUM/RETROPERITONEUM: No evidence of pneumoperitoneum or free fluid. VASCULATURE: No evidence of aortic aneurysm. MUSCULOSKELETAL: No acute osseous abnormalities LYMPH NODES: No gross evidence for lymphadenopathy. SOFT TISSUE/ABDOMINAL WALL: Unremarkable IMPRESSION: Normal appendix. No evidence of obstructive uropathy. No finding to correlate patient's right lower q uadrant pain.
[2022-12-15] MEDS ORDERED: ACET/COD 300 MG/30 MG STARTER PACK 6 TAB BTL PO STA (21:25)
[2022-12-15] MEDS ORDERED: IBUPROFEN 600 MG STARTER PACK 4 TAB BTL PO STA (21:26)
[2022-12-15] MEDS ORDERED: CYCLOBENZAPRINE 10MG STARTER 3 TAB BTL PO STA (21:26)
[2022-12-15 21:35] VITALS: BP 120/67; PULSE 61; RESP 16; TEMP 98.2
== END 2022-12-15 21:35 | disposition home or self-care (01) ==
LOC: EC 15:23
DX: R10.31 Right lower quadrant pain (principal); J45.909 Unspecified asthma, uncomplicated; F17.200 Nicotine dependence, unspecified, uncomplicated; F12.90 Cannabis use, unspecified, uncomplicated; Z79.899 Other long term (current) drug therapy; Z91.030 Bee allergy status; Z91.041 Radiographic dye allergy status
CPT/HCPCS: 36415; 80053; 85025; 81003; 74018; 74177; 99285; 96374; J1885; Q9967